=== PATIENT | female | born 1940 | race Caucasian/White ===

== ENCOUNTER 2023-03-13 14:16 | Emergency (ER) | payer OTHER, SELFPAY ==
[2023-03-13 14:32] VITALS: BP 136/77
--- NOTE | 2023-03-13 15:37 | ED.GENMED ---
History of Present Illness
General
Chief Complaint: Musculo-Skeletal Complaint
Source: patient
Exam Limitations: none
Time Seen by Provider: 03/13/23 15:15
Travel History
Have you had any contact with someone who has COVID-19?: No
Do you have any symptoms of coronavirus? Fever > 100 degrees, chills, cough, shortness of breath, sore throat, loss of taste or smell, muscle aches, or headache?: No
History of Present Illness
History of Present Illness:
82-year-old female presents with right knee pain. Patient states she woke up yesterday with pain in the right knee. Pain was sort of diffuse. Patient states that it was pretty bad yesterday but she was able to get around with a cane. Patient
suspected she twisted her knee in her sleep. She denies overuse injuries. Patient states today her pain is actually better. She only came in because she thought she needed an x-ray. Patient states that the pain has resolved completely and was
not associate with any fevers or redness. No numbness or tingling. No pain in the foot. No swelling noted
Past History
Past History
ED Past Medical History: GERD, HTN and Hypercholesterolemia
Phy Exam
Physical Exam
Physical Exam:
CONSTITUTIONAL Vital signs reviewed, Patient alert and oriented to person, place and time. Well-appearing
HEAD atraumatic, normocephalic.
EYES eyelids normal to inspection, Extraocular muscles intact, Conjunctiva normal, Sclera normal.
NECK normal range of motion, Trachea midline, no jugular venous distention.
RESP no respiratory distress
BACK No obvious deformities
UPPER EXTREMITY Gross Range of motion normal, gross motor strength normal
LOWER EXTREMITY Gross range of motion normal, Gross motor strength normal. No focal tenderness. No obvious swelling to the right knee. No effusion noted. No redness. Normal perfusion. When standing, she bears weight without difficulty. She
does have a noted valgus deformity of bilateral lower extremities but right valgus deformity is more prominent. Her gait is normal
NEURO Speech normal, No focal motor deficits include, Fawn coma scale 15, Memory normal, Cranial Nerves intact to screening exam.
SKIN Skin warm, dry, and normal in color.
PSYCHIATRIC Patient oriented to person place and time, Normal affect.
Course
Orders/Labs/Results
Orders:
Orders
03/13/23 14:35
Knee, Right 4 or More Views [CR Knee- Right 4 Or More View*] Urgent
Comment:
Reason For Exam: pain
Vital Signs
Initial and Last Documented VS:
Initial Vital Signs
Temp Pulse Resp BP Pulse Ox
98.1 F 108 20 136/77 95
03/13/23 14:32 03/13/23 14:32 03/13/23 14:32 03/13/23 14:32 03/13/23 14:32
Last Documented Vital Signs
Temp Pulse Resp BP Pulse Ox
98.1 F 108 20 136/77 95
03/13/23 14:32 03/13/23 14:32 03/13/23 14:32 03/13/23 14:32 03/13/23 14:32
MDM/Problems Addressed
Differential Diagnosis Includes:
Osteoarthritis, ligamentous strain, tibial plateau fracture, infection
MDM/Problems Addressed:
Knee pain
*Radiology
Radiology exam reviewed: preliminary read by ED provider (No obvious fracture) and radiology read reviewed
*Pulse Oximetry
Patient hypoxic: no
*Critical Care Note
Total Time (30-74mins, 75-104mins- exclusive of procedures): Not Applicable
Data Reviewed
Source: patient
Prescriptions/Medications Considered But Not Given:
Considered NSAIDs and pain medications with patient reports no pain.
Update Note
Update Note:
Appears well. Normal perfusion. No signs of infection and no effusion. Recommended PCP versus Ortho follow-up if symptoms recur
ED Attending Note
-
Portions of this chart may have been created with voice recognition software.� Occasional wrong word or��sound alike� substitutions may have occurred due to the inherent limitations of voice recognition software.
Discharge Plan
Departure
Patient Disposition: Home (Routine Discharge)
Date of Disposition: 03/13/23
Time of Disposition: 15:37
Patient with high blood pressure during this ER visit?: No
Discharge Problem:
Knee strain
Instructions: Knee Pain (DC)
Referrals:
Diane John MD [Family Provider] -
Activity Restrictions/Additional Instructions:
Please see your doctor or orthopedics in the next 1 week if any symptoms recur. Return immediately for redness, swelling, worsening pain or any other concerns.
Interventions
Interventions:
*Risk Screen - Suicide Last Done: 03/13/23 15:15
*General Assessment Last Done: 03/13/23 15:15
*Neglect/Abuse Screening Last Done: 03/13/23 15:15
ED- Fall Risk Assessment Last Done: 03/13/23 15:15
*ED COVID-19 Vaccine History Last Done: 03/13/23 14:32
*Nursing Disposition Last Done: 03/13/23 15:40
ED-Musculoskeletal Assessment Last Done: 03/13/23 15:15
== END 2023-03-13 15:42 | disposition home or self-care (01) ==
LOC: EMR 14:16
PROVIDERS: EMERGENCY PHYSICIAN Emergency Medicine; FAMILY PHYSICIAN Internal Medicine
DX: S83.91XA Sprain of unspecified site of right knee, initial encounter (principal); X50.1XXA Overexertion from prolonged static or awkward postures, initial encounter; I10 Essential (primary) hypertension; E78.00 Pure hypercholesterolemia, unspecified; K21.9 Gastro-esophageal reflux disease without esophagitis
CPT/HCPCS: 99283; 73564

== ENCOUNTER → 2024-01-22 09:15 | Outpatient (REF) | payer OTHER, SELFPAY ==
[2024-01-22 12:33] LABS: % Basophils 0.7 % (0-2); % Eosinophils 0.5 % (0-6); % Immature Granulocytes 0.2 % (0-0.5); % Lymphocytes 25.4 % (20.5-51.1); % Monocytes 5.9 % (1.7-9.3); % Neutrophils 67.3 % (42.2-75.2); Absolute Lymphocytes 1.4 10^3/uL (1.2-3.4); Absolute Monocytes 0.3 10^3/uL (0.1-0.6); Absolute Neutrophils 3.8 10^3/uL (1.4-6.5); Hematocrit 40.5 % (37.0-47.0); Hemoglobin 13.8 g/dL (12.0-16.0); Mean Corp Hgb Conc. 34.1 g/dL (33.0-37.0); Mean Corpuscular Hgb 29.9 pg (27.0-31.0); Mean Corpuscular Volume 87.7 fL (81.0-99.0); Mean Platelet Volume 10.3 fL (7.4-10.4); Nucleated Red Blood Cells % 0 %; Platelet Count 379 10^3/uL (130-400); Red Blood Cell Count 4.62 10^6/uL (4.20-5.40); Red Cell Dist. Width 12.8 % (11.5-14.5); White Blood Cell Count 5.6 10^3/uL (4.8-10.8)
[2024-01-22 12:43] LABS: ALT (SGPT) 11 U/L (0-35); AST (SGOT) 19 U/L (14-36); Albumin 4.6 g/dl (3.5-5.0); Alkaline Phosphatase 57 U/L (38-126); Blood Urea Nitrogen 15 mg/dl (7-17); Calcium 9.8 mg/dl (8.4-10.2); Carbon Dioxide 27 mmol/L (22-30); Chloride 102 mmol/L (98-107); Glucose 141 mg/dl (70-99); HDL Cholesterol 83 mg/dl; Potassium 3.7 mmol/L (3.5-5.1); Sodium 141 mmol/L (135-145); Total Bilirubin 0.9 mg/dl (0.2-1.3); Total Protein 7.3 g/dl (6.3-8.2); Triglyceride 84 mg/dl (10-149); Very Low Density Lipoprotein 16 mg/dl (0-30); eGFR > 60.00
[2024-01-22 12:53] LABS: LDL Cholesterol, Calculated 219 mg/dl; Total Cholesterol 318 mg/dl (50-199)
[2024-01-22 12:59] LABS: Vitamin D, 25-OH*** 49.6 ng/mL (30-80)
[2024-01-22 13:12] LABS: TSH 2.09 uIU/ml (0.47-4.68)
[2024-01-22 13:34] LABS: Vitamin B12 159 pg/ml (239-931)
[2024-01-23 08:38] LABS: Glycohemoglobin (HgbA1c) 5.6 % (4.0-5.6)
== END ==
LOC: CLAB 09:15
DX: Z01.89 Encounter for other specified special examinations (principal)
CPT/HCPCS: 36415; 80053; 80061; 82306; 82607; 83036; 84443; 85025

== ENCOUNTER → 2024-05-02 11:29 | Outpatient (REF) | payer OTHER, SELFPAY | LOC: PAVMRI 11:29 | PROVIDERS: ATTENDING PHYSICIAN Internal Medicine Geriatric Medicine | DX: R41.3 Other amnesia (principal); K21.9 Gastro-esophageal reflux disease without esophagitis; M19.041 Primary osteoarthritis, right hand; F32.0 Major depressive disorder, single episode, mild; C79.9 Secondary malignant neoplasm of unspecified site; E78.2 Mixed hyperlipidemia; I10 Essential (primary) hypertension | CPT/HCPCS: 70551 ==

== ENCOUNTER → 2024-05-16 10:15 | Outpatient (REF) | payer OTHER, SELFPAY | LOC: RCS 10:15 | PROVIDERS: ATTENDING PHYSICIAN Nurse Practitioner Primary Care; FAMILY PHYSICIAN Internal Medicine Geriatric Medicine | DX: R55 Syncope and collapse (principal) | CPT/HCPCS: 93005; 93225; 93226; 93306 ==